=== PATIENT | female | born 1965 ===

== ENCOUNTER 2017-07-11 13:32 | Inpatient (IN) | payer BC, OTHER ==
[~2017-07-11] VITALS: Ht 175.3 cm; Wt 63.5 kg
[~2017-07-11 13:32] MED LIST: ACET-2605 PO; CEPH500C2 PO; DICY20TA28 PO; FLUO-120 PO; Famotidine PO; Gabapentin PO; HYDR-3895 PO; Ibuprofen PO; LACT1CAP57 PO; LIDO30AD10 TD; TRAZ-144 PO; WOMENS MULTI VITAMIN
--- NOTE | 2017-07-11 20:30 | NUR ---
Pre admission note Pt seen in intake office. Pt is A+Ox4. Pt noted to be slightly intoxicated but in stable condition. V/S WNL. Policies on medication disposal explained to and understood by patient. No s/s of distress noted at this time. Respirations even and unlabored. Will admit to unit. Will continue to monitor.
[2017-07-11 20:45] VITALS: BP 135/76
--- NOTE | 2017-07-11 20:45 | NUR ---
Admission note Pt is a 52 yo Female, A+Ox4, presenting to [facility] for ETOH dependence. Pt has NKA, is on Full Code status, and on Regular diet. Pt is 5'9 in height and 140 LBS in weight. Pt has medical HX of Anxiety, depression, and neck SX. Pt has family HX of Brain cancer from father, and ETOH dependence from Mother, Father, and 3 brothers. Pt has Primary care provider named Erich Yao. Pt has been drinking Alcohol for 32 years (2 months currently), has reached a level of 375ml Vodka/daily, and last deink was 375ml Vodka on 07-11-17 @1700. Pt is taking home medications as follows: Prozac 20mg QD- Last dose 07-09-17, [place] 5/325 PRN- Last dose 1 tablet on 07-11-17 @1700. Pt has HX of previous detox/rehab @ [facility] for 3 days in , 30 days @ [facility] [place] and continued sobriety for 90 days afterward. This was the patients last time sober. Pt has been a cigarette smoker for 3 years and has reached a rate of 2/daily. Pt appears mildly intoxicated upon admission but in stable condition. V/S WNL. No s/s of distress noted at this time. Respirations even and unlabored. Will continue to monitor.
[2017-07-11 21:14] LABS: *URINE HCG, QUAL NEGATIVE (NEGATIVE)
[2017-07-11 21:17] LABS: BASOPHILS # (AUTO) 0.1 K/uL (0.0-8.0); BASOPHILS % (AUTO) 0.6 % (0.0-2.0); EOSINOPHILS # (AUTO) 0.1 K/uL (0.0-0.7); EOSINOPHILS % (AUTO) 0.8 % (0.0-7.0); HEMATOCRIT 42.6 % (37-47); HEMOGLOBIN 14.3 G/DL (12.0-16.0); LYMPHOCYTES # (AUTO) 1.4 K/UL (0.8-4.8); LYMPHOCYTES % (AUTO) 17.1 % (20.5-51.5); MEAN CORPUSCULAR HEMOGLOBIN 33.8 UUG (27.0-31.0); MEAN CORPUSCULAR HGB CONC 34 g/dL (32.0-37.0); MEAN CORPUSCULAR VOLUME 100.9 FL (81.0-99.0); MONOCYTES # (AUTO) 0.4 K/UL (0.1-1.30); MONOCYTES % (AUTO) 4.4 % (0.0-11.0); NEUTROPHILS # (AUTO) 6.4 K/UL (1.8-8.9); NEUTROPHILS % (AUTO) 77.1 % (38.5-71.5); PLATELET COUNT (AUTO) 359 K/UL (150-450); RED BLOOD CELL COUNT(AUTO) 4.22 MIL/UL (4.2-5.4); WHITE BLOOD COUNT (AUTO) 8.4 K/UL (4.0-11.2)
[2017-07-11 21:27] LABS: BILIRUBIN,TOTAL 0.4 mg/dL (0.2-1.0); CREATININE 0.9 mg/dL (0.6-1.3); POTASSIUM 3.5 mmol/L (3.5-5.1); TOTAL PROTEIN, SERUM 7.4 g/dL (6.4-8.2)
[2017-07-11 21:28] LABS: *AMPHETAMINE, URINE NEGATIVE (NEGATIVE); *BARBITURATE, URINE NEGATIVE (NEGATIVE); *CANNABINOID, URINE NEGATIVE (NEGATIVE); *COCCAINE, URINE POSITIVE (NEGATIVE); *OPIATE, URINE POSITIVE (NEGATIVE); *PHENCYCLIDINE SCREEN,URINE NEGATIVE (NEGATIVE)
--- NOTE | 2017-07-11 22:21 | NUR ---
PRN Ativan 2 mg Pt noted with CIWA: 16. PRN Ativan 2mg given and tolerated well. Will reassess within 1 HR. Will continue to monitor.
--- NOTE | 2017-07-11 23:20 | NUR ---
PRN Ativan 2mg Reassessment Medication effective. CIWA: 7. No s/s of ASE/distress noted at this time. Respirations even and unlabored. Will continue to monitor.
[2017-07-12] VITALS (7 sets, daily range): BP systolic 132–150; BP diastolic 86–109
[2017-07-12] MEDS ORDERED: FLUO20CA36 PO (01:48)
[2017-07-12] MEDS ORDERED: HYDR-3326 PO (01:48)
--- NOTE | 2017-07-12 01:55 | NUR ---
PRN Ativan 1mg Pt noted with CIWA: 6. PRN Ativan 1mg given and tolerated well. Will reassess within 1 HR. Will continue to monitor.
--- NOTE | 2017-07-12 02:50 | NUR ---
PRN Ativan 1mg Reassessment Medication effective. CIWA: 3. No s/s of Ase/distress noted at this time. Respirations even and unlabored. Will continue to monitor.
--- NOTE | 2017-07-12 07:00 | NUR ---
End of shift note Pt is a 52 yo Female, A+Ox4, presenting to [facility] for ETOH dependence. Pt has NKA, is on Full Code status, and on Regular diet. Pt has HX of Anxiety, depression, and neck SX. Pt is on Fall and Seizure precautions. Pt is to start 5 day Ativan taper today. Pt was given PRN Ativan 2mg @2221 and PRN Ativan 1mg @0155. Pt slept for a total of 5 HRS. Last CIWA: 3 @0400. No s/s of distress noted at this time. Respirations even and unlabored. Will endorse to day shift nurse.
--- NOTE | 2017-07-12 07:25 | NUR ---
Start of Shift Delivery Rep received report on 52 year old female admitted on 07/11/17 for ETOH detoxification. Pt reports NKA, is a full code and eats a regular diet. Reports a PMH of anxiety, depression and neck surgery. Pt skin intact. Pt will start on a 5 day Ativan taper today. Last CIWA of 3 at 0400. Delivery Rep encounters pt in her room, A/O x4 and able to make needs known. Clear thought and speech with appropriate content. Flat affect with a depressed mood. Bed in low position, wheels locked, side rails up x2 and call light within reach.
--- NOTE | 2017-07-12 16:12 | NUR ---
GREY Tony Pt with complaints of severe stomach cramping and nausea. MD ordered medication to be given, pt requesting to take medication. Mechanic Insulator administered medication per MD order, with pt tolerating well.
--- NOTE | 2017-07-12 16:30 | NUR ---
PRN Clonidine Pt's blood pressure 149/100. Plant And Maintenance Technician administered mediation per PRN parameters, pt tolerated well. Will continue to monitor, support and encourage according to plan of care.
--- NOTE | 2017-07-12 17:12 | NUR ---
PRN Re-assessment - Cecily Pt states she has experienced some relief and is feeling better. Will continue to monitor, support and encourage according to plan of care.
--- NOTE | 2017-07-12 17:28 | NUR ---
PRN Re-assessment -Clonidine BP: 134/86
--- NOTE | 2017-07-12 18:50 | NUR ---
End of Shift Director Of Estate provided report on 52 year old female admitted on 07/11/17 for ETOH detoxification. Pt reports NKA, is a full code and eats a regular diet. Reports a PMH of anxiety, depression and neck surgery. Pt skin intact. Pt started on 5 day Ativan taper. Last CIWA of 6 at 1600. Pt administered Bentyl and Clonidine PRN. Pt is A/O x4 and able to make needs known. Clear thought and speech with appropriate content. Flat affect with a depressed mood. Bed in low position, wheels locked, side rails up x2 and call light within reach.
--- NOTE | 2017-07-12 20:05 | NUR ---
Start of shift: Rec'd 52 year old female admitted on 07/11/17 for ETOH detoxification. Patient is on a Ativan taper and tolerating well. Currently resting comfortably in bed. No c/o pain or discomfort at this time. Afebrile and vital signs are stable except for elevated pulse @ 119 bpm. Denies having chest pain or pressure. No signs of acute resp distress. No signs of withdrawals at this time. Reviewed current plan of care. Patient voiced understanding. No other concerns at this time. Safety and fall precautions in progress. Bed is in the lowest position,side rails up x2 and call light within reach. Will continue to monitor closely.
[2017-07-13 04:30] VITALS: BP 119/86
--- NOTE | 2017-07-13 06:43 | NUR ---
End of shift: Pt is a 52 yo Female, A+Ox4, presenting to [facility] for ETOH dependence. Afebrile and vital signs are stable. No signs of distress observed. Patient had a uneventful night. Patient did not request any prn medication during the night. Patient slept a total of 6.5 hrs. Patient had been tolerating Ativan taper and will complete taper today. Last CIWA score is 2. unlabored. No other concerns at this time. All needs were met. Will endorse to day shift nurse to follow up care.
--- NOTE | 2017-07-13 07:25 | NUR ---
Start of Shift Wardrobe Manager received report on 52 year old female admitted on 07/11/17 for ETOH detoxification. Pt reports NKA, is a full code and eats a regular diet. Reports a PMH of anxiety, depression and neck surgery. Pt skin intact. Pt currently on a 5 day Ativan taper. Last CIWA of 2 at 0400. No PRN medication administered on corporate counselor. Wardrobe Manager encounters pt in her room, A/O x4 and able to make needs known. Clear thought and speech with appropriate content. Appropriate affect with subdued mood. Bed in low position, wheels locked, side rails up x2 and call light within reach.
[2017-07-13 08:17] LABS: HEPATITIS B SURFACE AG Negative (Negative)
[2017-07-13 08:39] VITALS: BP 136/88
[2017-07-13 12:30] VITALS: BP 148/95
--- NOTE | 2017-07-13 15:08 | NUR ---
Psychosocial assessment completed today.
[2017-07-13 16:30] VITALS: BP 142/88
--- NOTE | 2017-07-13 18:46 | NUR ---
End of Shift Icd 9 Coder provided report on 52 year old female admitted on 07/11/17 for ETOH detoxification. Pt reports NKA, is a full code and eats a regular diet. Reports a PMH of anxiety, depression and neck surgery. Pt skin intact. Pt currently on a 5 day Ativan taper. Last CIWA of 2 at 1600. No PRN medication administered on this shift. A/O x4 and able to make needs known. Clear thought and speech with appropriate content. Appropriate affect with subdued mood. Bed in low position, wheels locked, side rails up x2 and call light within reach.
[2017-07-13 20:00] VITALS: BP 157/95
--- NOTE | 2017-07-13 20:00 | NUR ---
Start of Shift Received a 52 year old female admitted on 07/11/17 for ETOH detoxification. Urine cocaine and urine Opiates comes up positive last 07/11/2017 @ 2040H. NKA, is a full code and on regular diet. Reports a PMH of anxiety, depression and neck surgery. Pt currently on a 5 day Ativan taper. A/O x4 and able to make needs known. Reports anxiety. Bed in low position, wheels locked, side rails up x2 and call light within reach.
--- NOTE | 2017-07-13 21:52 | NUR ---
PRN Clonidine Px reports anxiety. BP= 157/95, DE= 97. Clonidine 0.1 mg 1 tab given PO as PRN med. Will continue to monitor.
[2017-07-14] VITALS: BP 134/95
--- NOTE | 2017-07-14 | NUR ---
CIWA deferral CIWA deferred due that the px is sleeping, to assess if the px is awake per doctor's order. Respirations even and unlabored. Will continue to monitor.
--- NOTE | 2017-07-14 07:15 | NUR ---
End of Shift Note Px is 52 year old female admitted on 07/11/17 for ETOH detoxification. NKA, is a full code and on regular diet. A/O x4 and able to make needs known. During the shift, Reports anxiety, with BP= 157/95, SD=97 @ 2000, Clonidine 0.1mg 1 tab given PO as PRN med @ 2152. Bed in low position, wheels locked, side rails up x2 and call light within reach. Oral intake of 1,720 ml, voided 2x, BM 1x. Slept for 6 hrs. Well continue to monitor.
--- NOTE | 2017-07-14 07:20 | NUR ---
Start Of Shift Trombone Slide Assembler received report on 52 year old female admitted on 07/11/17 for ETOH detoxification. Pt reports NKA, is a full code and eats a regular diet. Reports a PMH of anxiety, depression and neck surgery. Pt skin intact. Pt currently on a 5 day Ativan taper. Last CIWA of 2 at 0400. No PRN medication administered on relay mechanic. Trombone Slide Assembler encounters pt in her room, A/O x4 and able to make needs known. Clear thought and speech with appropriate content. Appropriate affect with subdued mood. Bed in low position, wheels locked, side rails up x2 and call light within reach.
[2017-07-14 08:55] VITALS: BP 127/85
[2017-07-14 12:22] VITALS: BP 132/88
[2017-07-14 16:30] VITALS: BP 138/87
--- NOTE | 2017-07-14 18:55 | NUR ---
End of Shift Survey Technologist provided report on 52 year old female admitted on 07/11/17 for ETOH detoxification. Pt reports NKA, is a full code and eats a regular diet. Reports a PMH of anxiety, depression and neck surgery. Pt skin intact. Pt currently on a 5 day Ativan taper. Last CIWA of 3 at 1600. No PRN medication administered on this shift. A/O x4 and able to make needs known. Clear thought and speech with appropriate content. Appropriate affect with subdued mood. Bed in low position, wheels locked, side rails up x2 and call light within reach.
[2017-07-14 20:00] VITALS: BP 127/91
--- NOTE | 2017-07-14 20:00 | NUR ---
START OF SHIFT NOTE PATIENT ALERT AND ORIENTED X 4. RESPIRATION EVEN AND UNLABORED. PATIENT STATES SHE FEELS MUCH BETTER BUT REPORTS ANXIETY, SWEATING , DENIES ANY PAIN AND REQUESTING TO HAVE SLEEPING MEDICATION LATER. NO N/V/D. RECEIVED REPORT FROM DAY SHIFT NURSE. PATIENT IS A 52 YEAR OLD FEMALE ADMITTED FOR ETOH DEPENDENCE. PATIENT IS ON 3RD DAY OF HER ATIVAN TAPER. PATIENT COMPLIANT WITH MEDICATION AND TREATMENT PLAN. PATIENT REPORTS NO SEIZURE HISTORY. SKIN INTACT. PATIENT DID NOT REQUIRE ANY PRN MEDICATION DURING THE DAY. LAST CIWA 3. ON FALL /SEIZURE PRECAUTION. SAFETY MEASURES IN PLACE. CALL LIGHT IN REACH. WILL CONTINUE TO MONITOR
--- NOTE | 2017-07-14 21:23 | NUR ---
MD ORDER PATIENT REPORTS A CUT ON HER RIGHT PLANTAR. PICTURE TAKEN. DR. EDWARDS MADE AN ORDER FOR TRIPLE ANTIBIOTIC OINTMENT. WILL CONTINUE TO MONITOR
--- NOTE | 2017-07-14 21:31 | NUR ---
PRN TRAZADONE ADMINISTRATION PATIENT REQUESTS FOR SLEEP AID. PRN TRAZADONE GIVEN. WILL MONITOR FOR EFFECTIVENESS
--- NOTE | 2017-07-14 23:00 | NUR ---
PRN TRAZADONE RE-ASSESSMENT PATIENT IN BED ASLEEP. RESPIRATION EVEN AND UNLABORED. SAFETY MEASURES IN PLACE. CALL LIGHT IN REACH. WILL CONTINUE TO MONITOR
[2017-07-15] VITALS: BP 127/80
[2017-07-15 04:00] VITALS: BP 128/87
--- NOTE | 2017-07-15 07:17 | NUR ---
END OF SHIFT NOTE PATIENT IS ON 3RD DAY OF HER ATIVAN TAPER, TOLERATED WELL, NO ADVERSE REACTION. PATIENT COMPLIANT WITH MEDICATION AND TREATMENT PLAN. PATIENT REPORTS NO SEIZURE HISTORY. SKIN INTACT. PATIENT WAS GIVEN PRN TRAZADONE FOR SLEEP AT 2131 . PATIENT WAS ON FALL /SEIZURE PRECAUTION. SAFETY MEASURES IN PLACE. CALL LIGHT IN REACH. WILL CONTINUE TO MONITOR . SLEPT 7 HOURS. FLUID INTAKE 1,000 ML. VOIDED X 1. NO BM. LAST CIWA
--- NOTE | 2017-07-15 07:20 | NUR ---
Start of Shift Report from the night nurse: Pt is 52 y/o female her for Etoh r/t 375ml or Vodka for 2 months over the last 32 years; 5 day Ativan taper ordered and today is the last dose scheduled during my shift. Pt is and full code, NKA, fall and seizure precautions ordered. HHx: anxiety, depression, cervical fx and trach to vent, multiple relapses. V/s stable. Skin is intact with right foot open callus so new order for topical atbx ordered. PRN trazodone given last night. Last CIWA 1. Pt is in room asleep. Will cont. to monitor the pt.
[2017-07-15 08:00] VITALS: BP 123/64
[2017-07-15 12:00] VITALS: BP 147/99
[2017-07-15] MEDS ORDERED: TRAZ-147 PO (15:47)
[2017-07-15] MEDS ORDERED: DISU500T PO (15:47)
[2017-07-15] MEDS ORDERED: IBUP-1953 PO (15:47)
[2017-07-15] MEDS ORDERED: GABA-532 PO (15:47)
[2017-07-15] MEDS ORDERED: FLUO-120 PO (15:47)
[2017-07-15 16:00] VITALS: BP 159/92
--- NOTE | 2017-07-15 18:44 | NUR ---
PRN Medication Administration Pt is in bed anxious and restless r/t getting d/c'd tomorrow and wants to cx the d/c to the rehab and go home; I encouraged consult with the pattern chain maker supervisor, d/c case sealer and PRN Vistaril 25mg given PRN as ordered. Will reassess in 30 minutes to 1H.
--- NOTE | 2017-07-15 19:25 | NUR ---
End of Shift Report to night nurse: Pt is 52 y/o female her for Etoh r/t 375ml or Vodka for 2 months over the last 32 years; 5 day Ativan taper ordered and today is the last dose scheduled during my shift. Pt is and full code, NKA, fall and seizure precautions ordered. HHx: anxiety, depression, cervical fx and trach to vent, multiple relapses. V/s stable. Skin is intact with right foot open callus so new order for topical atbx and given as ordered. New order for PRN Vistaril 25mg given at 1845 pm. Last CIWA 4 r/t anxiety re: new order for pt getting d/c'd to rehab tomorrow.
--- NOTE | 2017-07-15 19:36 | NUR ---
Reassessment Pt is in room relaxed watching TV and states that she feels a lot less anxious; Vistaril is effective.
[2017-07-15 20:00] VITALS: BP 143/99
--- NOTE | 2017-07-15 20:00 | NUR ---
START OF SHIFT NOTE RECEIVED REPORT FROM DAY SHIFT NURSE. PATIENT IS A 52 YEAR OLD FEMALE ADMITTED FOR ETOH DEPENDENCE. PATIENT COMPLETED ATIVAN TAPER. PATIENT IS MEDICALLY CLEARED TO BE DISCHARGE TOMORROW. VS STABLE. PATIENT HAS NEW ORDER OF VISTARIL AND WAS GIVEN AT 1843. LAST CIWA 4. PATIENT IN HER ROOM AT THIS TIME. PATIENT REPORTS ANXIETY DUE TO HER BEING DISCHARGE TO A REHAB PLACE. SHE THOUGHT THAT SHE'S GOING HOME BUT REALIZED THAT IT'S FOR HER OWN GOOD. ON FALL PRECAUTION. SAFETY MEASURES IN PLACE . CALL LIGHT IN REACH. WILL CONTINUE TO MONITOR
[2017-07-15 22:43] LABS: *BILIRUBIN,URIN NEGATIVE (NEGATIVE); *BLOOD, URINE 2+ (NEGATIVE); *CLARITY,URINE TURBID (CLEAR); *COLOR,URINE YELLOW (YELLOW); *KETONES,URINE NEGATIVE (NEGATIVE); *PROTEIN,URINE 1+ (NEGATIVE); *UROBILINOGEN,URINE 0.2 E.U./dl (NORMAL); LEUKOCYTE ESTERASE ,URINE 3+ (NEGATIVE); NITRITE, URINE POSITIVE (NEGATIVE); UGLUCOSE NEGATIVE (NEGATIVE)
--- NOTE | 2017-07-15 23:06 | NUR ---
PRN TRAZADONE ADMINISTRATION PATIENT REQUESTS FOR SLEEP AID. PRN TRAZADONE GIVEN. WILL MONITOR FOR EFFECTIVENESS
[2017-07-15 23:14] LABS: BACTERIA,URINE MANY /HPF (NONE SEEN); RBC,URINE 50-80 /HPF (0-3); SQUAMOUS EPITHELIAL CELL,UR MODERATE /HPF (NONE SEEN); WBC,URINE TNTC /HPF (0-3)
--- NOTE | 2017-07-15 23:33 | NUR ---
MD ORDERS PATIENT'S URINALYSIS RESULT WAS POSITIVE FOR UTI. DR. EDWRADS MADE AN ORDER TO START PATIENT ON ANTIBIOTIC MACROBID.
--- NOTE | 2017-07-16 | NUR ---
CIWA/VS PATIENT REFUSED VS. CIWA UNABLE TO ASSESS. RESPIRATION EVEN AND UNLABORED. RR 15. SAFETY MEASURES IN PLACE. CALL LIGHT IN REACH. WILL CONTINUE TO MONITOR
--- NOTE | 2017-07-16 04:00 | NUR ---
CIWA/VS PATIENT REFUSED VS. CIWA UNABLE TO ASSESS. RESPIRATION EVEN AND UNLABORED. RR 14. SAFETY MEASURES IN PLACE. CALL LIGHT IN REACH. WILL CONTINUE TO MONITOR
--- NOTE | 2017-07-16 07:14 | NUR ---
END OF SHIFT NOTE PATIENT IS A 52 YEAR OLD FEMALE ADMITTED FOR EOTH DEPENDENCE. PATIENT COMPLETED ATIVAN TAPER. PATIENT IS MEDICALLY CLEARED TO BE DISCHARGE TODAY. PATIENT WAS ANXIOUS BEGINNING OF SHIFT, DUE TO HER BEING DISCHARGE TO A REHAB PLACE. RELAXATION TECHNIQUE PROVIDED AND POSITIVE ENCOURAGEMENT . PATIENT C/O HAVING DISCOMFORT WHEN SHE URINATES. DR. EDWARDS NOTIFIED AND MADE ON ORDER FOR URINALYSIS. RESULT CAMEL BACK POSITIVE FOR UTI AND PATIENT WAS STARTED ON MACROBID ANTIBIOTIC. INITIAL DOSE GIVEN. NO ADVERSE REACTION NOTED. ENCOURAGE FLUIDS . PATIENT DID NOT RECEIVE ANY PRN MEDICATION. PATIENT REMAIN FREE OF INJURY. ON FALL PRECAUTION. SAFETY MEASURES IN PLACE . CALL LIGHT IN REACH. WILL CONTINUE TO MONITOR. SLEPT 7 HOURS. FLUID INTAKE 1,500 ML. VOIDED X 3. NO BM. LAST CIWA 2.
--- NOTE | 2017-07-16 07:15 | NUR ---
Start of Shift Report from the night nurse: Pt is 52 y/o female her for Etoh r/t 375ml or Vodka for 2 months over the last 32 years; 5 day Ativan taper ordered and today is the last dose scheduled during my shift. Pt is and full code, NKA, fall and seizure precautions ordered. HHx: anxiety, depression, cervical fx and trach to vent with surgery, multiple relapses. V/s stable. Skin is intact with right foot open callus so topical atbx ordered. New order for Macrobid r/t pt newly dx'd with UTi and pt is to be d/c'd today. PRN trazodone given last night. Last CIWA 2. Pt is in room asleep. Will cont. to monitor the pt.
[2017-07-16 08:00] VITALS: BP 138/81
--- NOTE | 2017-07-16 09:36 | NUR ---
Discharge Pt is A&Ox 4 ambulatory independently. Features symmetrical, PERRLA 4 mm, no MOREL, no dizziness, no tremors or numbness & tingling noted. Pt denies chest pain & pulses present. Clear lung sounds in bilateral U/L lobes no SOB or acute respiratory distress noted. V/S Stable. No Ab discomfort, no N/V/D noted. Pt denies dysuria. No w/d s/sx noted. Skin is intact. Pt is given belongings and d/c summary packet with written Rx and a Rx for Macrobid and Vistaril called into the rehab facility, no home medications brought. Pt is chaperoned to the lobby with to the [facility] [facility] and transported to [facility].
== END 2017-07-16 09:36 | disposition other institution (70) | DRG 895 ==
LOC: SRC 19:47
PROVIDERS: ADMIT Internal Medicine; ATTEND Internal Medicine
PROC: HZ2ZZZZ Detoxification Services for Substance Abuse Treatment (ICD-10-PCS; principal; 2017-07-11)
PROC: HZ31ZZZ Individual Counseling for Substance Abuse Treatment, Behavioral (ICD-10-PCS; 2017-07-13)
PROC: HZ41ZZZ Group Counseling for Substance Abuse Treatment, Behavioral (ICD-10-PCS; 2017-07-14)
DX: F10.230 Alcohol dependence with withdrawal, uncomplicated (principal); F33.2 Major depressive disorder, recurrent severe without psychotic features; K70.10 Alcoholic hepatitis without ascites; I15.9 Secondary hypertension, unspecified; N30.00 Acute cystitis without hematuria; Y90.8 Blood alcohol level of 240 mg/100 ml or more; Z87.81 Personal history of (healed) traumatic fracture; Z98.1 Arthrodesis status; Z79.899 Other long term (current) drug therapy; Z81.1 Family history of alcohol abuse and dependence; F14.10 Cocaine abuse, uncomplicated; F11.10 Opioid abuse, uncomplicated; Z72.0 Tobacco use; R73.9 Hyperglycemia, unspecified; M50.90 Cervical disc disorder, unspecified, unspecified cervical region
CPT/HCPCS: 36415; 70030-TC; 80307; 80353; 80361; 83735; 84703; 85025; 86580; 86592; 86705; 86803; 87340; 87806; G0480; J3411; Q0162